=== PATIENT | female | born 1935 | race Caucasian/White ===

== ENCOUNTER 2017-06-02 07:11 | Inpatient (IN) ==
--- NOTE | 2017-06-01 14:54 | Discharge Summary ---
<Nargis Sanchez E - Last Filed: 06/01/17 14:52> Date of Encounter: 06/01/17 - Discharge Diagnosis (1) Painful orthopaedic hardware Priority: Primary Status: Chronic (2) Chronic pain Priority: Secondary Status: Chronic Qualifiers: Chronic pain type: other chronic pain Qualified Code(s): G89.29 - Other chronic pain (3) Aortic aneurysm Priority: Secondary Status: Chronic Qualifiers: Aortic location: unspecified Presence of rupture: without rupture Qualified Code(s): I71.9 - Aortic aneurysm of unspecified site, without rupture (4) HTN (hypertension) Priority: Secondary Status: Chronic Qualifiers: Hypertension type: unspecified Qualified Code(s): I10 - Essential (primary ) hypertension (5) GERD (gastroesophageal reflux disease) Priority: Secondary Status: Chronic Qualifiers: Esophagitis presence: esophagitis presence not specified Qualified Code(s) : K21.9 - Gastro-esophageal reflux disease without esophagitis (6) Osteoporosis Priority: Secondary Status: Chronic Qualifiers: Osteoporosis type: unspecified Presence of current pathological fracture: unspecified Qualified Code(s): M81.0 - Age-related osteoporosis without current pathological fracture (7) Obesity Priority: Secondary Status: Chronic Qualifiers: Obesity type: unspecified obesity type Obesity classification: unspecified obesity classification Serious obesity comorbidity presence: unspecified whether serious comorbidity present Qualified Code(s): E66.9 - Obesity, unspecified - Discharge Medications Home Medications: Aspirin Enteric Coated [Aspirin EC] 325 mg PO DAILY 21 Days #21 tablet. [Rx] OxyCODONE Immed Rel [Roxicodone 5 MG] 5 mg PO Q6HR PRN 7 Days #28 tablet [Rx] Aspirin [Lo-Dose Aspirin EC] 81 mg PO DAILY #0 06/02/17 [Rx] Ca/D3/Mag#11/Zinc/Production Controller/Cliff/Bor [Caltrate 600+D Plus Tablet] 1 tab PO DAILY 06/02 [History] Cholecalciferol (D-3) [Vitamin D] 1,000 unit PO DAILY 06/02/17 [History] Doxylamine Succinate [Sleep Aid] 25 mg PO HS PRN 06/02/17 [History] Fosinopril Sodium 10 mg PO DAILY 06/02/17 [History] Gabapentin [Neurontin] 800 mg PO TID 06/02/17 [History] Glucosam/Chond/Hyalu/Cf Borate [Move Free Joint Health Tablet] 1 tab PO DAILY [History] Lansoprazole [Prevacid] 15 mg PO DAILY 06/02/17 [History] Meloxicam 15 mg PO DAILY 06/02/17 [History] Pregabalin [Lyrica] 50 mg PO BID 06/02/17 [History] Tramadol HCl/Acetaminophen [Ultracet Tablet] 1 tab PO Q6H PRN 06/02/17 [History] Zinc Acetate [Galzin] 50 mg PO DAILY 06/02/17 [History] rOPINIRole [Requip] 1 mg PO HS 06/02/17 [History] traZODone [TraZODone] 50 mg PO HS 06/02/17 [History] Allergies/Adverse Reactions: 3 Allergy/AdvReac Type Severity Reaction Status Date / Time iron AdvReac Agitated Verified 06/02/17 07:44 morphine AdvReac Agitated Verified 06/02/17 07:44 promethazine [From Phenergan] AdvReac Agitated Verified 06/02/17 07:44 Primary care physician: Everton Vasquez - Patient Status Disposition: Home, Self-Care Condition: Good - Discharge Instructions Follow Up With: Everton Vasquez DO [Primary Care Provider] - - Hospital Course Hospital course: Ms. Osorio is a 81 year old female - Time Spent with Patient Total time spent providing and/or coordinating discharge services: <Olaf Morris - Last Filed: 06/03/17 06:54> Date of Encounter: 06/03/17 Time of Encounter: 06:54 - Discharge Diagnosis (1) Obesity (BMI 30.0-34.9) Priority: Secondary Status: Chronic (2) Painful orthopaedic hardware Priority: Primary Status: Chronic (3) Chronic pain Priority: Secondary Status: Chronic Qualifiers: Chronic pain type: other chronic pain Qualified Code(s): G89.29 - Other chronic pain (4) Aortic aneurysm Priority: Secondary Status: Chronic Qualifiers: Aortic location: unspecified Presence of rupture: without rupture Qualified Code(s): I71.9 - Aortic aneurysm of unspecified site, without rupture (5) HTN (hypertension) Priority: Secondary Status: Chronic Qualifiers: Hypertension type: unspecified Qualified Code(s): I10 - Essential (primary ) hypertension (6) GERD (gastroesophageal reflux disease) Priority: Secondary Status: Chronic Qualifiers: Esophagitis presence: esophagitis presence not specified Qualified Code(s) : K21.9 - Gastro-esophageal reflux disease without esophagitis (7) Osteoporosis Priority: Secondary Status: Chronic Qualifiers: Osteoporosis type: unspecified Presence of current pathological fracture: unspecified Qualified Code(s): M81.0 - Age-related osteoporosis without current pathological fracture (8) Status post revision of total replacement of left knee Priority: Primary Status: Acute Primary care physician: Everton Vasquez - Patient Status Functional capacity at discharge: uses cane/walker Overall status at discharge: patient is progressing back to baseline - Hospital Course Hospital course: Ms. Osorio is a 81 year old female Status post revision patellaThe patient had an uneventful postoperative course. They received antibiotics and physical therapy and were discharged in stable condition. There will follow-up in the office in 2 weeks. - Time Spent with Patient Total time spent providing and/or coordinating discharge services:
--- NOTE | 2017-06-01 15:00 | Physician Discharge Referral ---
Home Health/Hosp Referral Info Transfer to: Home Health Attending Provider: Dr Olaf Morris - Diagnosis (1) Painful orthopaedic hardware Priority: Primary Status: Chronic (2) Chronic pain Priority: Secondary Status: Chronic (3) Aortic aneurysm Priority: Secondary Status: Chronic (4) HTN (hypertension) Priority: Secondary Status: Chronic (5) GERD (gastroesophageal reflux disease) Priority: Secondary Status: Chronic (6) Osteoporosis Priority: Secondary Status: Chronic (7) Obesity Priority: Secondary Status: Chronic (8) Status post revision of total replacement of left knee Priority: Primary Status: Acute - Respiratory Orders Smoking Cessation: Smoking cessation has been advised. For more information, call the [place] Tobacco Quit Line at 4-163-AIHL-NOW. - Dressing/Wound Care Site: left knee Type of Dressing/Treatments w/Frequency: Opsite placed. Keep dressing intact until first follow up appointment. If > 50% saturated, notify office, remove dressing and place appropriate dressing back in place. Leave Mendez and Zipline intact. Opsite dressing is water resistant, not water-proof. OK to shower, but do not get dressing wet. - Diet/Nutrition Diet/Nutrition Orders: Regular - Activity Activity Orders: Up ad jose, Ambulate, Chair, Walker Activity: List: Total Knee replacement Precautions x 6 weeks Apply cold therapy wrap 3-6x/day for 20 minutes at a time. Encourage ambulation throughout the day and incentive spirometer 10x/hour. Elevate affected extremity above heart as tolerated. Brace: Wear knee immobilizer at night x 2 weeks. - Services Needed Following services are medically necessary services: Nursing, Home Health Aide, Physical Therapy, Occupational Therapy - Transfer Medications Prescriptions: OxyCODONE Immed Rel [Roxicodone 5 MG] 5 mg PO Q6HR PRN 7 Days #28 tablet PRN Reason: Severe Pain Aspirin Enteric Coated [Aspirin EC] 325 mg PO DAILY 21 Days #21 tablet. Home Medications: Aspirin Enteric Coated [Aspirin EC] 325 mg PO DAILY 21 Days #21 tablet. [Rx] OxyCODONE Immed Rel [Roxicodone 5 MG] 5 mg PO Q6HR PRN 7 Days #28 tablet [Rx] Allergies/Adverse Reactions: 3 Allergy/AdvReac Type Severity Reaction Status Date / Time iron AdvReac Agitated Verified 01/26/15 13:02 morphine AdvReac Agitated Verified 01/26/15 13:00 promethazine [From Phenergan] AdvReac Agitated Verified 01/26/15 13:01 Certification: Further, I certify that my clinical findings support that this patient is homebound (i.e. absences from home require considerable and taxing effort and are for medical reasons or sabianist services or infrequently or short duration when for other reasons) because: Homebound Reason: Post-surgery restriction and or conditions limit ability to leave home Attestation: My signature below is to certify that this patient is under my care and that I, or nurse practitioner, or a physician assignment desk assistant working with me, has a face-to- face encounter with this patient.
[2017-06-02] MEDS ORDERED: CeFAZolin Syr 2,000MG/20 ML 2,000 MG/20 ML SYRINGE IVPB ONE (07:42)
[2017-06-02] MEDS ORDERED: Ethanol\\Acetic Acid\\Na Ace\\Ben 1,000 ML IRRIG.SOLN IR ONE (07:42)
[2017-06-02] MEDS ORDERED: Ringers Solution, Lactated 1,000 ML IVC SCH ×2 (07:45→11:40)
--- NOTE | 2017-06-02 08:02 | History & Physical Report ---
Date of Encounter: 06/02/17 Time of Encounter: 08:02 24 Hour HP Update - Instructions Instructions: If the History and Physical is less than 30 days old and was completed prior to A.M. admission and or procedure and has NOT been updated on calendar day of procedure please complete this update prior to performing procedure. - Update Patient reports changes in Medical Condition: No Changes in examination, assessment, or condition: No Changes in Medication: No Preop tests/diagnostics Reviewed: Yes Surgery Remains Indicated: Yes Consent for Planned Operative Procedure(s) Verified: Yes - Pre-Operative Checklist Preoperative Checklist Indicated: No Prophylactic Antibiotic Ordered: Yes Is VTE Prophylaxis Indicated?: Yes
[2017-06-02] MEDS ORDERED: ROPIVACAINE HCL/PF 0.5% 30 ML VIAL ONE (08:11)
--- NOTE | 2017-06-02 08:14 | Anesthesia Evaluation PreOp ---
Date of Encounter: 06/02/17 Time of Encounter: 08:11 - Past History Planned Operation: Left TKR loosening of hardware Cardiac History: HTN, Other (AAA - being followed (per patient ~ 4.5 cm)) Pulmonary History: Denies Any Significant HX INFECTIOUS WASTE TECHNICIAN History: Other (chronic back pain; multiple back surgeries) Other Medical History: GERD Anesthesia History: No Prior Anesthetic Complications, Past Anesthesia (back surgery, right knee replacement, [place] hip replacement, rectocele repair, TLIF, partial hysterectomy, right shoulder replacement, left total knee replacement) Alcohol Use: none Drug use: none Medications and Allergies Aspirin Enteric Coated [Aspirin EC] 325 mg PO DAILY 21 Days #21 tablet. [Rx] OxyCODONE Immed Rel [Roxicodone 5 MG] 5 mg PO Q6HR PRN 7 Days #28 tablet [Rx] Aspirin [Lo-Dose Aspirin EC] 81 mg PO DAILY 06/02/17 [History] Ca/D3/Mag#11/Zinc/Openstack Developer/Cliff/Bor [Caltrate 600+D Plus Tablet] 1 tab PO DAILY 06/02 [History] Cholecalciferol (D-3) [Vitamin D] 1,000 unit PO DAILY 06/02/17 [History] Doxylamine Succinate [Sleep Aid] 25 mg PO HS PRN 06/02/17 [History] Fosinopril Sodium [Fosinopril Sodium] 10 mg PO DAILY 06/02/17 [History] Gabapentin [Neurontin] 800 mg PO TID 06/02/17 [History] Glucosam/Chond/Hyalu/Cf Borate [Move Free Joint Health Tablet] 1 tab PO DAILY [History] Lansoprazole [Prevacid] 15 mg PO DAILY 06/02/17 [History] Meloxicam [Meloxicam] 15 mg PO DAILY 06/02/17 [History] Pregabalin [Lyrica] 50 mg PO BID 06/02/17 [History] Tramadol HCl/Acetaminophen [Ultracet Tablet] 1 tab PO Q6H PRN 06/02/17 [History] Zinc Acetate [Galzin] 50 mg PO DAILY 06/02/17 [History] rOPINIRole [Requip] 1 mg PO HS 06/02/17 [History] traZODone [TraZODone] 50 mg PO HS 06/02/17 [History] 3 Allergy/AdvReac Type Severity Reaction Status Date / Time iron AdvReac Agitated Verified 06/02/17 07:44 morphine AdvReac Agitated Verified 06/02/17 07:44 promethazine [From Phenergan] AdvReac Agitated Verified 06/02/17 07:44 - Meds/Allergy Pre-op Review Medications Reviewed: Yes Allergies Reviewed: Yes Beta Blockers on Current Med List: No (no longer on coreg) Anesthesia Results - Labs Laboratory Tests 05/27/17 05/27/17 05/27/17 11:49 11:49 11:49 WBC 9.2 Hgb 12.8 Hct 40.4 Plt Count 254 PT 13.4 H INR 1.2 APTT 36.4 H Sodium 138 Potassium 4.8 Chloride 102 Carbon Dioxide 32 H BUN 21 Creatinine 0.84 Est GFR ( Amer) > 60 Est GFR (Non-Af Amer) > 60 BUN/Creatinine Ratio 25 Glucose 103 Calculated Osmolality 289 Calcium 9.4 - Imaging EKG: report reviewed, image reviewed (SINUS RHYTHM LEFT ANTERIOR FASCICULAR BLOCK VOLTAGE CRITERIA FOR LVH) Anesthesia Exam Last Vital Signs Temp 97.6 F 06/02/17 07:34 Pulse 63 06/02/17 07:34 Resp 18 06/02/17 07:34 BP 153/74 06/02/17 07:34 Pulse Ox 95 06/02/17 07:34 Weight: 79 kg NPO (# of Hours): > 8 hrs - HEENT Pupil (Motor): Pupils equal, EOMI Mallampati: III Teeth: Missing, Poor dentition Denture Type: Upper: Partial Oral Opening: Greater than 3 - INFECTIOUS WASTE TECHNICIAN LOC: Oriented - Cardiac Rhythm: Regular - Pulmonary Breath Sounds: bilateral Clear Respiratory Effort: Symmetrical Anesthesia Assess/Plan ASA Score: 3 Modified [place] Scale for Level of Consciousness: Cooperative, oriented, and tranquil Anesthetic Plan: General, Regional Monitoring Plan: Standard Monitors Recovery Plan: PACU
--- NOTE | 2017-06-02 09:21 | Anesthesia Procedures ---
Date of Encounter: 06/02/17 Time of Encounter: 09:19 Procedures: Anesthesia - Nerve Block Procedure Date: 06/02/17 Time: 09:19 Allergies/Adv Reactions: iron, morphine, promethazine Pre-op Diagnosis: L knee patella loosening Surgical Procedure: L knee revision of patellar component Checklist: Correct Patient Identifier, Correct procedure, History checked Correct side: Left Blood Thinner: No Monitor Applied: EKG, BP, Pulse Oximetry Supplemental Oxygen via Nasal Cannula (L/min): 3 Sedation: Versed (mg): 2 Sedation: Fentanyl (mcg): 50 Indication: Post Op Analgesia (requested by Dr. Morris) Pre-op Neuro Deficits: No Block Type: Femoral Catheter placed: No Sterile Technique: Yes Ultrasound used: Yes Anatomy identified: Yes Visual spread of Local: Yes Neuro Stimulation: Yes Nerve Stimulator Range: 0.2 - 0.4 mA Blood on Needle Aspiration: No Smooth Injection of Local: Yes Pain with Injection of Local: No Prep: Chlorhexadine Needle: 22 x 50 mm Stimuplex Local: Ropivacaine (0.5%), Other (4mg dexamethasone) Volume (cc): 30 Number of Attempts: 1 Complications: None/effective block Vitals: please see [facility]'s electronic records for VS entry
[2017-06-02] MEDS ORDERED: MORPHINE SUL Oral CONC 10 MG/0.5 ML ORAL.SYG SL PRN (09:23)
[2017-06-02] MEDS ORDERED: *HR* Midazolam HCl 2 MG/2 ML VIAL IVP PRN (09:23)
[2017-06-02] MEDS ORDERED: *HR* HYDROmorphone 2 MG TABLET PO PRN (09:23)
[2017-06-02] MEDS ORDERED: Lidocaine -MPF 2% 2 ML VIAL ONE (10:01)
[2017-06-02] MEDS ORDERED: Dexamethasone 4 MG/ML VIAL ONE (10:01)
[2017-06-02] MEDS ORDERED: *HR* FentaNYL (PF) 100 MCG/2 ML VIAL ONE (10:01)
[2017-06-02] MEDS ORDERED: Ondansetron 4 MG/2 ML VIAL ONE (10:01)
[2017-06-02] MEDS ORDERED: *HR* Midazolam HCl 2 MG/2 ML VIAL ONE (10:01)
[2017-06-02] MEDS ORDERED: *HR* Propofol 200 MG/20 ML VIAL IVP ONE (10:01)
[2017-06-02] MEDS ORDERED: EPHEDrine 50 MG/ML VIAL ONE (10:22)
--- NOTE | 2017-06-02 10:30 | Orthopedic Operative Note ---
Date of procedure: 06/02/17 Pre-op diagnosis: Left knee patella component loosening Post-op diagnosis: same Procedure: procedure: Left Revision of patella component, Estimated blood loss: 50 mL Hardware Arthrex: 37 patella poly- Findings: Loose patellar component. Procedure: Patient brought to the operating room and placed on the operating room table. After general anesthesia was administered the left knee was examined patient of full motion well-healed incision no varus valgus instability. The left lower extremity was prepped and draped in the sterile surgical fashion patient IV antibiotic prior skin incision. A standard midline incision was made centered over the patella through the old incision. Incision made through the skin and subcutaneous tissue hemostasis was obtained with Bovie cautery. A medial parapatellar approach was performed. Fluid was normal joint fluid and sent for Gram stain and culture. The patella component was loose and removed without difficulty. Patella surface was freshened with a saw blade cut. The patella size 37 guide was seated local suture drill. The component was cemented in place and held with the patellar holding clamp. The knee was irrigated out with antibacterial solution. It was then irrigated out pulse irrigation. The knee was closed by the PA. The extensor mechanism was repaired with #2 FiberWire suture and #1 Vicryl suture. Subcutaneous tissues irrigated and closed deep #1 PDS suture superficially with 0 PDS sutures skin was closed with zip tie, patient was placed in a sterile dressing postoperative brace extubated transferred to recovery room in stable condition. Anesthesia: GETA Surgeon: Olaf Morris Was there an culinary assistant present: No Estimated blood loss (cc): 50 Condition: stable Disposition: PACU
[2017-06-02 11:21] LABS: Hemoglobin 11.7 g/dL (11.5-15.4)
--- NOTE | 2017-06-02 11:37 | Anesthesia Evaluation Post Op ---
Date of Encounter: 06/02/17 Time of Encounter: 11:36 - Vital Signs Vital Signs: Last Vital Signs Temp 98.0 F 06/02/17 11:30 Pulse 80 06/02/17 11:30 Resp 16 06/02/17 11:30 BP 152/71 06/02/17 11:30 Pulse Ox 95 06/02/17 11:30 - Lungs Lungs: Clear Ascult./Percussion - Airway Airway: Non-obstructed - Cardiovascular Regular Rate - Mental Status Mental Status: Alert & Oriented, Answers Appropriately - Pain Pain Scale: 3 - Nausea Vomiting Nausea Vomiting: Not Present - Hydration Hydration: Ice chips - Discharge PostOp Status: Transfer Patient to floor
[2017-06-02] MEDS ORDERED: Sennosides 8.6 MG TABLET PO PRN (11:40)
[2017-06-02] MEDS ORDERED: Temazepam 15 MG CAPSULE PO PRN (11:40)
[2017-06-02] MEDS ORDERED: Naloxone 0.4 MG/ML INJ IVP PRN (11:40)
[2017-06-02] MEDS ORDERED: MOM Conc 10 ML UD.LIQ PO PRN (11:40)
[2017-06-02] MEDS ORDERED: Ondansetron 4 MG/2 ML VIAL IVP PRN (11:40)
[2017-06-02] MEDS ORDERED: DOXYLAMINE 25 MG PO PRN (11:40)
--- NOTE | 2017-06-02 12:54 | Anesthesia Evaluation Post Op ---
Date of Encounter: 06/02/17 Time of Encounter: 12:51 - Vital Signs Vital Signs: Last Vital Signs Temp 97.7 F 06/02/17 12:36 Pulse 64 06/02/17 12:36 Resp 16 06/02/17 12:36 BP 132/69 06/02/17 12:36 Pulse Ox 97 06/02/17 12:36 - Lungs Lungs: Clear Ascult./Percussion - Airway Airway: Non-obstructed - Cardiovascular Regular Rate - Mental Status Mental Status: Alert & Oriented, Answers Appropriately - Pain Pain Scale: 3 - Hydration Hydration: Ice chips
[2017-06-02] MEDS: Gabapentin 400 MG CAPSULE PO SCH ×2 (16:43→19:51)
[2017-06-02] MEDS: *HR* Enoxaparin 30 MG/0.3 ML SYRINGE SQ SCH (16:43)
[2017-06-02] MEDS: CeFAZolin Premix DUPLEX 2,000 MG/50 ML BAG IVPB SCH (16:44)
[2017-06-02] MEDS ORDERED: *HR* OxyCODONE Immed Rel 5 MG TABLET PO PRN ×4 (19:30→20:48)
[2017-06-02] MEDS: Pregabalin 50 MG CAPSULE PO SCH (19:59)
[2017-06-02] MEDS ORDERED: traZODone 50 MG TABLET PO SCH (21:00)
[2017-06-02] MEDS ORDERED: rOPINIRole 1 MG TABLET PO SCH (21:00)
[2017-06-03] MEDS: CeFAZolin Premix DUPLEX 2,000 MG/50 ML BAG IVPB SCH (00:37)
[2017-06-03] MEDS: *HR* Enoxaparin 30 MG/0.3 ML SYRINGE SQ SCH (05:48)
[2017-06-03 06:03] LABS: Hematocrit 34.3 % (35.3-44.9); Hemoglobin 10.8 g/dL (11.5-15.4)
[2017-06-03 06:22] LABS: BUN/Creatinine Ratio 30 (6-26); Blood Urea Nitrogen 22 mg/dL (8-23); Carbon Dioxide 27 mEq/L (23-29); Chloride 105 mEq/L (98-107); Glucose 147 mg/dL (70-105); Osmolality,Calculated 292 (280-300); Potassium 4.4 mEq/L (3.5-5.1); Sodium 138 mEq/L (136-145); eGFR For African Americans > 60 (> 60); eGFR For Non-African Americans > 60 (> 60)
--- NOTE | 2017-06-03 06:55 | Orthopedics Progress Note ---
Date of Encounter: 06/03/17 Time of Encounter: 06:55 - Assessment and Plan (1) Obesity (BMI 30.0-34.9) Current Visit: Yes Status: Chronic (2) Painful orthopaedic hardware Current Visit: No Status: Chronic (3) Chronic pain Current Visit: No Status: Chronic Qualifiers: Chronic pain type: other chronic pain Qualified Code(s): G89.29 - Other chronic pain (4) Aortic aneurysm Current Visit: No Status: Chronic Qualifiers: Aortic location: unspecified Presence of rupture: without rupture Qualified Code(s): I71.9 - Aortic aneurysm of unspecified site, without rupture (5) HTN (hypertension) Current Visit: No Status: Chronic Qualifiers: Hypertension type: unspecified Qualified Code(s): I10 - Essential (primary ) hypertension (6) GERD (gastroesophageal reflux disease) Current Visit: No Status: Chronic Qualifiers: Esophagitis presence: esophagitis presence not specified Qualified Code(s) : K21.9 - Gastro-esophageal reflux disease without esophagitis (7) Osteoporosis Current Visit: No Status: Chronic Qualifiers: Osteoporosis type: unspecified Presence of current pathological fracture: unspecified Qualified Code(s): M81.0 - Age-related osteoporosis without current pathological fracture (8) Status post revision of total replacement of left knee Current Visit: No Status: Acute Subjective Interval history: Patient was seen this morning doing well without complaints. Afebrile vital signs stable. Operative extremity: Neurovascularly intact Dressing clean dry and intact Calves nontender Assessment and plan: Continue with postoperative care Discharge today Objective Vital signs: Vital Signs Temp Pulse Resp BP Pulse Ox 06/03/17 03:52 98.2 F 73 16 125/83 98 06/02/17 23:52 98.1 F 77 16 127/80 97 06/02/17 20:00 98.1 F 80 18 131/81 97 06/02/17 16:08 98.0 F 82 16 129/73 97 06/02/17 13:59 97.5 F L 87 16 143/74 93 06/02/17 12:36 97.7 F 64 16 132/69 97 06/02/17 11:56 97.6 F 74 16 128/82 98 06/02/17 11:30 98.0 F 80 16 152/71 95 06/02/17 11:20 89 16 151/72 98 06/02/17 11:10 82 16 127/81 98 06/02/17 11:00 98.3 F 77 16 148/76 96 06/02/17 09:43 76 18 150/87 97 06/02/17 09:29 71 18 131/77 96 06/02/17 09:15 70 18 149/83 96 06/02/17 09:05 68 18 177/89 97 06/02/17 07:34 97.6 F 63 18 153/74 95 Intake and Output 06/02/17 06/02/17 06/03/17 15:59 23:59 07:59 Intake Total 500 / 500 Output Total 50 / 50 Balance -50 / -50 500 / 500 Intake: IV Fluids 50 / 50 Ancef Premix DUPLEX 2,000 mg In 50 / 50 50 ml @ 100 mls/hr IVPB Q8HR STAR Rx#:[id number] Oral 450 / 450 Output: Urine 0 / 0 Estimated Blood Loss 50 / 50 Other: # Voids 1 1 - Labs CBC & BMP: 06/03/17 05:34 06/03/17 05:34 Labs: Abnormal lab results Hgb 10.8 g/dL (11.5-15.4) L 06/03/17 05:34 Hct 34.3 % (35.3-44.9) L 06/03/17 05:34 BUN/Creatinine Ratio 30 (6-26) H 06/03/17 05:34 Glucose 147 mg/dL (70-105) H 06/03/17 05:34 - VTE Documentation of Mechanical Device: Venous foot pump, device Consult Discharge Plan - Plan Referrals: Everton Vasquez DO [Primary Care Provider] -
[2017-06-03] MEDS: Pregabalin 50 MG CAPSULE PO SCH (08:01)
[2017-06-03] MEDS: Gabapentin 400 MG CAPSULE PO SCH (08:01)
[2017-06-03] MEDS ORDERED: Zinc Acetate [Galzin] 50 MG PO SCH (09:00)
[2017-06-03] MEDS ORDERED: [UNRECOGNIZED DRUG - REMARK] PO SCH (09:00)
[2017-06-03] MEDS ORDERED: Cholecalciferol (D-3) 1,000 UNIT TABLET PO SCH (09:00)
[2017-06-03 10:31] VITALS: BP 112/69
== END 2017-06-03 14:45 | disposition home or self-care (01) | DRG 465 ==
LOC: SAMDAY 07:11 → 3NENU 11:30
PROVIDERS: ADMIT Orthopaedic Surgery; ATTEND Orthopaedic Surgery

== ENCOUNTER 2019-02-06 19:19 | Inpatient (IN) ==
[2019-02-06] MEDS ORDERED: *HR* Heparin 5,000 UNIT/ML VIAL IVP PRN ×2 (22:31)
[2019-02-06] MEDS ORDERED: Ondansetron 4 MG/2 ML VIAL IVP PRN (22:31)
[2019-02-06] MEDS ORDERED: Heparin 25,000 UNIT/250 ML D5W 25,000 UNIT/250 ML IV.SOLN IVC SCH (22:45)
[2019-02-06] MEDS: Nitroglycerin 0.4 MG TAB.SUBL SL PRN (23:54)
[2019-02-07] MEDS: Nitroglycerin 0.4 MG TAB.SUBL SL PRN (00:04)
[2019-02-07] MEDS ORDERED: *HR* Heparin 10,000 UNIT/10 ML VIAL ONE (01:30)
[2019-02-07] MEDS ORDERED: Nitroglycerin 1,000 MCG/10 ML VIAL IV ONE (01:30)
[2019-02-07] MEDS ORDERED: ISOVUE-370 200 ML INFUS..BTL ONE (01:30)
[2019-02-07] MEDS ORDERED: 0.9 % Sodium Chloride 1,000 ML ONE (01:30)
[2019-02-07] MEDS ORDERED: Heparin 1,000 UNITS/500 mL 500 ML ONE (01:30)
[2019-02-07] MEDS ORDERED: *HR* Midazolam HCl 2 MG/2 ML VIAL ONE (02:14)
[2019-02-07] MEDS ORDERED: *HR* FentaNYL (PF) 100 MCG/2 ML VIAL ONE (02:14)
[2019-02-07] MEDS: Pregabalin 50 MG CAPSULE PO SCH ×3 (03:23→18:15)
[2019-02-07] MEDS: traZODone 50 MG TABLET PO PRN ×2 (03:23→22:13)
[2019-02-07] MEDS: rOPINIRole 1 MG TABLET PO SCH ×2 (03:23→22:13)
[2019-02-07] MEDS ORDERED: Pregabalin 50 MG CAPSULE PO SCH (03:30)
[2019-02-07] MEDS ORDERED: rOPINIRole 1 MG TABLET PO SCH (03:30)
[2019-02-07] MEDS ORDERED: 0.9 % Sodium Chloride 500 ML IVC ONE (04:56)
[2019-02-07] MEDS ORDERED: 0.9 % Sodium Chloride 500 ML ONE (04:58)
[2019-02-07 05:37] LABS: Basophils # 0.1 K/mcL (0.0-0.2); Basophils % 0.4 %; Hematocrit 35.5 % (35.3-44.9); Hemoglobin 11.6 g/dL (11.5-15.4); Immature Granulocytes % 1.7 % (0-4); Lymphocytes % 15.3 %; Mean Corpuscular HGB Conc 32.7 g/dL (31.6-35.5); Mean Corpuscular Hemoglobin 29.9 pg (28.0-33.3); Mean Corpuscular Volume 91.5 fL (83.0-100.0); Mean Platelet Volume 9.4 fL (9.4-12.4); Monocytes # 0.9 K/mcL (0.0-1.3); Monocytes % 6.8 %; Neutrophils # 10.1 K/mcL (1.6-8.9); Platelet Count 280 K/mcL (140-400); Red Blood Count 3.88 M/mcL (3.82-4.97); Red Cell Distribution Width 15.2 % (11.5-14.5); Segmented Neutrophils % 75.8 %; White Blood Count 13.3 K/mcL (4.3-11.1)
[2019-02-07 05:44] LABS: INR 1.3; Prothrombin Time 14.8 Seconds (9.4-12.1)
[2019-02-07 05:47] LABS: Activated Partial Thrombo Time 40.5 Seconds (26.0-36.0)
[2019-02-07 05:54] LABS: Chol/HDL Ratio 5.3 (0-4.9)
[2019-02-07 05:56] LABS: Alanine Aminotransferase 19 Units/L (7-52); Albumin 3.7 g/dL (3.5-5.7); Albumin/Globulin Ratio 1.4 (1.1-2.2); Alkaline Phosphatase 78 Units/L (34-104); Aspartate Amino Transferase 29 Units/L (13-39); BUN/Creatinine Ratio 23 (6-26); Bilirubin,Total 0.4 mg/dL (0.3-1.0); Blood Urea Nitrogen 23 mg/dL (8-23); Carbon Dioxide 28 mEq/L (23-29); Chloride 102 mEq/L (98-107); Globulin 2.6 g/dL (2.4-3.5); Glucose 201 mg/dL (70-105); Osmolality,Calculated 297 (280-300); Potassium 4.6 mEq/L (3.5-5.1); Sodium 139 mEq/L (136-145); Total Protein 6.3 g/dL (6.4-8.9); eGFR For African Americans > 60 (> 60); eGFR For Non-African Americans 54 (> 60)
[2019-02-07] MEDS ORDERED: Nitroglycerin 0.2 MG PATCH.TD24 TD SCH (07:30)
[2019-02-07 08:01] LABS: Estimated Average Glucose 163 mg/dl
[2019-02-07] MEDS ORDERED: Perflutren Lipid Microsphere 1.3 ML in 0.9 % Sodium Chloride 8.7 ML IVP ONE (08:41)
[2019-02-07] MEDS ORDERED: GABAPENTIN 1600 MG PO SCH (09:00)
[2019-02-07] MEDS ORDERED: Gabapentin 400 MG CAPSULE PO SCH (09:00)
[2019-02-07] MEDS: cefTRIAXone 1,000 MG in Water for inj. (sterile) 10 ML IVPB SCH (10:22)
[2019-02-07] MEDS: Azithromycin 500 MG in 0.9 % Sodium Chloride 250 ML IVPB SCH ×2 (10:24→12:36)
[2019-02-07] MEDS: Gabapentin 400 MG CAPSULE PO SCH ×3 (10:25→22:13)
[2019-02-07] MEDS ORDERED: D5% in Water 1,000 ML IVC PRN (12:05)
[2019-02-07] MEDS ORDERED: *HR* Dextrose 50 % in Water (Syg) 50 ML SYRINGE IVP PRN (12:05)
[2019-02-07] MEDS ORDERED: Dextrose Gel 15 GM/37.5 ML TUBE PO PRN ×2 (12:05)
[2019-02-07] MEDS ORDERED: Azithromycin 250 MG TABLET PO ONE (12:37)
[2019-02-07] MEDS: Ipratropium/Albuterol Neb 3 ML IH PRN ×2 (14:06→19:50)
[2019-02-07] MEDS: *HR* Heparin 5,000 UNIT/ML VIAL SQ SCH ×2 (15:38→22:13)
[2019-02-07] MEDS: Insulin LISPRO 300 UNITS/3 ML VIAL SQ SCH ×2 (18:14→18:15)
[2019-02-07] MEDS ORDERED: traZODone 50 MG TABLET PO SCH (21:00)
[2019-02-07] MEDS ORDERED: DOXYLAMINE SUCCINATE 25 MG PO SCH (21:00)
[2019-02-08] MEDS: Ipratropium/Albuterol Neb 3 ML IH PRN ×2 (00:08→13:27)
[2019-02-08] MEDS: Pregabalin 50 MG CAPSULE PO SCH ×3 (03:40→18:33)
[2019-02-08] MEDS: Nitroglycerin 0.4 MG TAB.SUBL SL PRN (03:49)
[2019-02-08] MEDS ORDERED: *HR* Heparin 5,000 UNIT/ML VIAL IVP ONE (04:13)
[2019-02-08] MEDS ORDERED: *HR* Heparin 5,000 UNIT/ML VIAL IVP PRN ×2 (04:13)
[2019-02-08] MEDS ORDERED: Heparin 25,000 UNIT/250 ML D5W 25,000 UNIT/250 ML IV.SOLN IVC SCH (04:15)
[2019-02-08] MEDS ORDERED: Amiodarone Premix 360 MG/200 ML BAG IVC ONE (04:15)
[2019-02-08] MEDS ORDERED: Amiodarone Premix 150 MG/100 ML BAG IVPB ONE (04:15)
[2019-02-08] MEDS: *HR* Metoprolol 5 MG/5 ML VIAL IVP ONE (04:17)
[2019-02-08] MEDS: *HR* Heparin 5,000 UNIT/ML VIAL SQ SCH (05:14)
[2019-02-08 05:50] LABS: White Blood Count 13.1 K/mcL (4.3-11.1)
[2019-02-08 05:51] LABS: Hemoglobin 11.8 g/dL (11.5-15.4); Mean Corpuscular HGB Conc 32.8 g/dL (31.6-35.5); Mean Corpuscular Hemoglobin 29.6 pg (28.0-33.3); Mean Corpuscular Volume 90.5 fL (83.0-100.0); Mean Platelet Volume 9.4 fL (9.4-12.4); Platelet Count 252 K/mcL (140-400); Red Blood Count 3.98 M/mcL (3.82-4.97); Red Cell Distribution Width 15.4 % (11.5-14.5)
[2019-02-08 05:58] LABS: Heparin anti-factor XA UFH 0.01 IU/mL (0.30-0.70); INR 1.4; Prothrombin Time 15.6 Seconds (9.4-12.1)
[2019-02-08 06:14] LABS: Troponin I 2.74 ng/mL (< 0.04)
[2019-02-08 06:28] LABS: BUN/Creatinine Ratio 22 (6-26); Blood Urea Nitrogen 21 mg/dL (8-23); Calcium 8.9 mg/dL (8.6-10.3); Carbon Dioxide 24 mEq/L (23-29); Chloride 101 mEq/L (98-107); Glucose 221 mg/dL (70-105); Osmolality,Calculated 294 (280-300); Potassium 3.8 mEq/L (3.5-5.1); Sodium 137 mEq/L (136-145); eGFR For African Americans > 60 (> 60); eGFR For Non-African Americans 55 (> 60)
[2019-02-08] MEDS: Cholecalciferol (D-3) 1,000 UNIT (25MCG) TABLET PO SCH (08:24)
[2019-02-08] MEDS: cefTRIAXone 1,000 MG in Water for inj. (sterile) 10 ML IVPB SCH (08:24)
[2019-02-08] MEDS: Gabapentin 400 MG CAPSULE PO SCH ×3 (08:24→21:31)
[2019-02-08] MEDS: Insulin LISPRO 300 UNITS/3 ML VIAL SQ SCH ×3 (08:28→17:23)
[2019-02-08] MEDS: Azithromycin 500 MG in 0.9 % Sodium Chloride 250 ML IVPB SCH (08:30)
[2019-02-08] MEDS ORDERED: [UNRECOGNIZED DRUG - REMARK] PO SCH (09:00)
[2019-02-08] MEDS ORDERED: *HR* Amiodarone Premix 360 MG/200 ML BAG IVC ONE (09:49)
[2019-02-08] MEDS ORDERED: *HR* Adenosine 6 MG/2 ML SYRINGE IVP ONE (09:49)
[2019-02-08] MEDS ORDERED: *HR* Amiodarone 150 MG/3 ML VIAL IVPB ONE (09:49)
[2019-02-08] MEDS: Amiodarone Premix 360 MG/200 ML BAG IVC SCH ×2 (10:11→21:33)
[2019-02-08] MEDS: Aspirin Enteric Coated 81 MG Tablet PO SCH (13:25)
[2019-02-08] MEDS: Metoprolol XL (24 HR) Succ 25 MG TAB.ER.24H PO SCH (13:25)
[2019-02-08] MEDS ORDERED: *HR* LORazepam 0.5 MG TABLET PO ONE (15:45)
[2019-02-08] MEDS: traZODone 50 MG TABLET PO PRN (21:30)
[2019-02-08] MEDS: Apixaban 5 MG TABLET PO SCH (21:30)
[2019-02-08] MEDS: rOPINIRole 1 MG TABLET PO SCH (21:30)
[2019-02-09 01:46] LABS: Basophils # 0.1 K/mcL (0.0-0.2); Basophils % 0.8 %; Eosinophils # 0.1 K/mcL (0.0-0.6); Eosinophils % 0.6 %; Hematocrit 39.4 % (35.3-44.9); Hemoglobin 12.7 g/dL (11.5-15.4); Immature Granulocytes % 1.9 % (0-4); Immature Platelets 2.6 % (1.1-6.1); Lymphocytes # 3.7 K/mcL (0.6-4.6); Lymphocytes % 21.5 %; Mean Corpuscular HGB Conc 32.2 g/dL (31.6-35.5); Mean Corpuscular Hemoglobin 29.5 pg (28.0-33.3); Mean Corpuscular Volume 91.6 fL (83.0-100.0); Mean Platelet Volume 9.7 fL (9.4-12.4); Monocytes # 0.9 K/mcL (0.0-1.3); Monocytes % 5.5 %; Neutrophils # 11.8 K/mcL (1.6-8.9); Platelet Count 278 K/mcL (140-400); Red Cell Distribution Width 15.6 % (11.5-14.5); Segmented Neutrophils % 69.7 %
[2019-02-09 02:12] LABS: BUN/Creatinine Ratio 19 (6-26); Blood Urea Nitrogen 19 mg/dL (8-23); Calcium 9.4 mg/dL (8.6-10.3); Carbon Dioxide 27 mEq/L (23-29); Chloride 99 mEq/L (98-107); Glucose 148 mg/dL (70-105); Osmolality,Calculated 291 (280-300); Potassium 3.7 mEq/L (3.5-5.1); Sodium 138 mEq/L (136-145); Troponin I 1.75 ng/mL (< 0.04); eGFR For African Americans > 60 (> 60); eGFR For Non-African Americans 52 (> 60)
[2019-02-09] MEDS: Pregabalin 50 MG CAPSULE PO SCH ×3 (03:39→18:41)
[2019-02-09] MEDS: Insulin LISPRO 300 UNITS/3 ML VIAL SQ SCH ×3 (08:49→16:48)
[2019-02-09] MEDS: Aspirin Enteric Coated 81 MG Tablet PO SCH (08:49)
[2019-02-09] MEDS: Gabapentin 400 MG CAPSULE PO SCH ×3 (08:50→19:35)
[2019-02-09] MEDS: Cholecalciferol (D-3) 1,000 UNIT (25MCG) TABLET PO SCH (08:50)
[2019-02-09] MEDS: cefTRIAXone 1,000 MG in Water for inj. (sterile) 10 ML IVPB SCH (08:50)
[2019-02-09] MEDS: Apixaban 5 MG TABLET PO SCH ×2 (08:50→19:35)
[2019-02-09] MEDS: Metoprolol XL (24 HR) Succ 25 MG TAB.ER.24H PO SCH (08:50)
[2019-02-09] MEDS: Azithromycin 500 MG in 0.9 % Sodium Chloride 250 ML IVPB SCH (08:51)
[2019-02-09] MEDS ORDERED: tiZANidine 4 MG TABLET PO ONE (09:58)
[2019-02-09] MEDS: Lactobacillus 1 EACH CAP.SPRINK PO SCH (12:13)
[2019-02-09] MEDS: rOPINIRole 1 MG TABLET PO SCH (19:35)
[2019-02-09] MEDS: traZODone 50 MG TABLET PO PRN (19:35)
[2019-02-10] MEDS: Pregabalin 50 MG CAPSULE PO SCH ×3 (04:16→20:41)
[2019-02-10 04:32] LABS: Basophils # 0.1 K/mcL (0.0-0.2); Basophils % 0.5 %; Eosinophils # 0.3 K/mcL (0.0-0.6); Eosinophils % 2.4 %; Hematocrit 37.3 % (35.3-44.9); Immature Granulocytes % 2.2 % (0-4); Lymphocytes # 2.8 K/mcL (0.6-4.6); Lymphocytes % 21.3 %; Mean Corpuscular HGB Conc 32.2 g/dL (31.6-35.5); Mean Corpuscular Volume 93.3 fL (83.0-100.0); Mean Platelet Volume 9.8 fL (9.4-12.4); Monocytes # 0.7 K/mcL (0.0-1.3); Monocytes % 5.5 %; Neutrophils # 8.8 K/mcL (1.6-8.9); Platelet Count 263 K/mcL (140-400); Red Cell Distribution Width 15.8 % (11.5-14.5); Segmented Neutrophils % 68.1 %
[2019-02-10 04:53] LABS: Potassium 3.7 mEq/L (3.5-5.1)
[2019-02-10 04:54] LABS: Troponin I 0.72 ng/mL (< 0.04)
[2019-02-10] MEDS ORDERED: Water for inj. (sterile) 20 ML IV ONE (07:44)
[2019-02-10] MEDS ORDERED: Ringers Solution, Lactated 1,000 ML IVC SCH (08:00)
[2019-02-10] MEDS: Insulin LISPRO 300 UNITS/3 ML VIAL SQ SCH ×3 (08:04→17:09)
[2019-02-10] MEDS: Aspirin Enteric Coated 81 MG Tablet PO SCH (08:07)
[2019-02-10] MEDS: Lactobacillus 1 EACH CAP.SPRINK PO SCH (08:07)
[2019-02-10] MEDS: Cholecalciferol (D-3) 1,000 UNIT (25MCG) TABLET PO SCH (08:07)
[2019-02-10] MEDS: Gabapentin 400 MG CAPSULE PO SCH ×3 (08:07→20:40)
[2019-02-10] MEDS: Apixaban 5 MG TABLET PO SCH ×2 (08:07→20:41)
[2019-02-10] MEDS: Metoprolol XL (24 HR) Succ 25 MG TAB.ER.24H PO SCH ×2 (08:08→10:42)
[2019-02-10] MEDS: Azithromycin 500 MG in 0.9 % Sodium Chloride 250 ML IVPB SCH (08:16)
[2019-02-10] MEDS ORDERED: Metoprolol XL (24 HR) Succ 25 MG TAB.ER.24H PO ONE (09:00)
[2019-02-10] MEDS ORDERED: *HR* Metoprolol 5 MG/5 ML VIAL IVP ONE ×2 (09:35→09:59)
[2019-02-10] MEDS: *HR* Metoprolol 5 MG/5 ML VIAL IVP ONE (09:48)
[2019-02-10] MEDS: cefTRIAXone 1,000 MG in Water for inj. (sterile) 10 ML IVPB SCH ×2 (09:56→10:24)
[2019-02-10] MEDS ORDERED: Amiodarone Premix 150 MG/100 ML BAG IVPB ONE (13:21)
[2019-02-10] MEDS ORDERED: Amiodarone Premix 360 MG/200 ML BAG IVC ONE (13:21)
[2019-02-10] MEDS: Ipratropium/Albuterol Neb 3 ML IH PRN (17:49)
[2019-02-10 17:52] LABS: Calcium 8.6 mg/dL (8.6-10.3); Potassium 3.9 mEq/L (3.5-5.1)
[2019-02-10] MEDS: rOPINIRole 1 MG TABLET PO SCH (20:41)
[2019-02-10] MEDS: Amiodarone Premix 360 MG/200 ML BAG IVC SCH (21:07)
[2019-02-10] MEDS: GuaiFENesin Liq 200 MG/10 ML UDC PO PRN (22:29)
[2019-02-10] MEDS: traZODone 50 MG TABLET PO PRN (22:29)
[2019-02-11] MEDS: GuaiFENesin Liq 200 MG/10 ML UDC PO PRN ×3 (04:59→21:03)
[2019-02-11 05:37] LABS: BUN/Creatinine Ratio 20 (6-26); Blood Urea Nitrogen 21 mg/dL (8-23); Calcium 8.8 mg/dL (8.6-10.3); Carbon Dioxide 28 mEq/L (23-29); Chloride 103 mEq/L (98-107); Glucose 154 mg/dL (70-105); Osmolality,Calculated 292 (280-300); Potassium 4.1 mEq/L (3.5-5.1); Sodium 138 mEq/L (136-145); eGFR For African Americans > 60 (> 60); eGFR For Non-African Americans 50 (> 60)
[2019-02-11] MEDS: Gabapentin 400 MG CAPSULE PO SCH ×3 (08:13→21:04)
[2019-02-11] MEDS: Lactobacillus 1 EACH CAP.SPRINK PO SCH (08:13)
[2019-02-11] MEDS: Aspirin Enteric Coated 81 MG Tablet PO SCH (08:14)
[2019-02-11] MEDS: Apixaban 5 MG TABLET PO SCH ×2 (08:14→21:04)
[2019-02-11] MEDS: Pregabalin 50 MG CAPSULE PO SCH ×3 (08:14→21:04)
[2019-02-11] MEDS: Cholecalciferol (D-3) 1,000 UNIT (25MCG) TABLET PO SCH (08:15)
[2019-02-11] MEDS: cefTRIAXone 1,000 MG in Water for inj. (sterile) 10 ML IVPB SCH (08:15)
[2019-02-11] MEDS: Insulin LISPRO 300 UNITS/3 ML VIAL SQ SCH ×3 (08:17→17:12)
[2019-02-11] MEDS: Azithromycin 500 MG in 0.9 % Sodium Chloride 250 ML IVPB SCH (08:23)
[2019-02-11] MEDS: Amiodarone Premix 360 MG/200 ML BAG IVC SCH (09:28)
[2019-02-11] MEDS ORDERED: *HR* LORazepam 0.5 MG TABLET PO ONE (10:37)
[2019-02-11] MEDS: *HR* Amiodarone 200 MG TABLET PO SCH ×3 (11:05→21:04)
[2019-02-11] MEDS ORDERED: Ringers Solution, Lactated 1,000 ML IVC SCH (12:15)
[2019-02-11] MEDS ORDERED: Ringers Solution, Lactated 500 ML IVC SCH (13:00)
[2019-02-11] MEDS: Ipratropium/Albuterol Neb 3 ML IH PRN (15:15)
[2019-02-11 16:06] LABS: Sodium, Urine 55.9 mEq/L
[2019-02-11] MEDS: rOPINIRole 1 MG TABLET PO SCH (21:04)
[2019-02-11] MEDS: traZODone 50 MG TABLET PO PRN (21:04)
[2019-02-12] MEDS: GuaiFENesin Liq 200 MG/10 ML UDC PO PRN (06:11)
[2019-02-12] MEDS: *HR* Amiodarone 200 MG TABLET PO SCH (08:02)
[2019-02-12] MEDS: Metoprolol XL (24 HR) Succ 25 MG TAB.ER.24H PO SCH (08:02)
[2019-02-12] MEDS: Gabapentin 400 MG CAPSULE PO SCH (08:03)
[2019-02-12] MEDS: Pregabalin 50 MG CAPSULE PO SCH (08:03)
[2019-02-12] MEDS: Cholecalciferol (D-3) 1,000 UNIT (25MCG) TABLET PO SCH (08:03)
[2019-02-12] MEDS: Lactobacillus 1 EACH CAP.SPRINK PO SCH (08:03)
[2019-02-12] MEDS: Apixaban 5 MG TABLET PO SCH (08:03)
[2019-02-12] MEDS: Aspirin Enteric Coated 81 MG Tablet PO SCH (08:03)
[2019-02-12] MEDS: Insulin LISPRO 300 UNITS/3 ML VIAL SQ SCH ×2 (08:04→12:21)
[2019-02-12] MEDS ORDERED: levoFLOXacin 750 MG/150 ML 750 MG/150 ML BAG IVPB SCH (09:00)
[2019-02-12 11:19] VITALS: BP 125/76
[2019-02-13] MEDS ORDERED: *HR* Amiodarone 200 MG TABLET PO SCH (09:00)
== END 2019-02-12 14:28 | disposition home or self-care (01) | DRG 286 ==
LOC: 2ANU → SUATTDRO 22:31 → 2NNU 02-08 05:04
PROVIDERS: ADMIT Internal Medicine; ATTEND Internal Medicine